=== PATIENT | male | born 1985 | race Caucasian/White ===

== ENCOUNTER 2022-07-04 07:43 | Day surgery (SDC) | payer OTHER ==
[~2022-07-04] VITALS: Ht 182.9 cm; Wt 84.4 kg
[2022-07-04 07:30] VITALS: BP 109/74
[2022-07-04 08:06] LABS: HEMATOCRIT 41.1 % (39.0-50.0); HEMOGLOBIN 13.6 g/dl (14.0-18.0); IMMATURE GRANULOCYTES 0.2 % (0.0-5.0); MEAN CELL VOLUME 81.9 fL CALC (80.0-100.0); MEAN CORPUSCULAR HGB 27.1 pG CALC (26.0-32.0); MEAN CORPUSCULAR HGB CONC 33.1 g/dL CAL (32.0-36.0); NEUT# 3.44 thou/uL (1.82-7.42); RED BLOOD COUNT 5.02 mill/uL (4.70-6.10); RED CELL DISTRI WIDTH 12.9 % (11.5-15.5)
[2022-07-04 08:29] LABS: ALBUMIN 4.6 g/dL (3.2-5.0); ALKALINE PHOSPHATASE 234 u/l (38-126); ANION GAP 13 (6-22 (CALC)); BILIRUBIN, TOTAL 1.8 mg/dL (0.0-1.4); BUN 13 mg/dL (9-20); BUN/CREATININE RATIO 15 (12-20 (CALC)); CARBON DIOXIDE 25 mmol/l (22-30); CHLORIDE 102 mmol/l (95-108); CREATININE 0.9 mg/dL (0.7-1.3); GFR FOR AFR.AMER. > 60 ML/MIN (>=60 (CALC)); GFR OTHER RACES > 60 ML/MIN (>=60 (CALC)); POTASSIUM 4.6 mmol/l (3.5-5.1); SGOT/AST 64 u/l (17-59); SODIUM 136 mmol/l (137-146); TOTAL PROTEIN 7.7 g/dL (6.3-8.2)
[2022-07-04 09:10] VITALS: BP 93/61
[2022-07-04 11:02] VITALS: BP 102/72
[2022-07-04] MEDS ORDERED: NALTREXONE50 MG PO (13:33)
[2022-07-04] MEDS ORDERED: CLONIDINE0.1 MG PO (13:33)
[2022-07-04] MEDS ORDERED: KLONOPIN2 MG PO (13:34)
[2022-07-04 19:30] VITALS: BP 118/80
[2022-07-04 22:32] VITALS: BP 124/86
[2022-07-05 03:29] VITALS: BP 108/72
[2022-07-05 06:26] LABS: ALKALINE PHOSPHATASE 295 u/l (38-126); BILIRUBIN, TOTAL 2.2 mg/dL (0.0-1.4); BUN 12 mg/dL (9-20); BUN/CREATININE RATIO 14 (12-20 (CALC)); CARBON DIOXIDE 20 mmol/l (22-30); CHLORIDE 108 mmol/l (95-108); CREATININE 0.9 mg/dL (0.7-1.3); GFR FOR AFR.AMER. > 60 ML/MIN (>=60 (CALC)); GFR OTHER RACES > 60 ML/MIN (>=60 (CALC)); MAGNESIUM 2.2 mg/dL (1.6-2.3); SGOT/AST 84 u/l (17-59); SODIUM 142 mmol/l (137-146); TOTAL PROTEIN 8.8 g/dL (6.3-8.2)
[2022-07-05 06:28] LABS: ANION GAP 20 (6-22 (CALC))
[2022-07-05 06:29] LABS: POTASSIUM 5.9 mmol/l (3.5-5.1)
[2022-07-05 07:33] VITALS: BP 121/76
[2022-07-05 08:03] LABS: HEMATOCRIT 39.8 % (39.0-50.0); HEMOGLOBIN 13.6 g/dl (14.0-18.0); IMMATURE GRANULOCYTES 0.2 % (0.0-5.0); MEAN CELL VOLUME 79.9 fL CALC (80.0-100.0); MEAN CORPUSCULAR HGB 27.3 pG CALC (26.0-32.0); MEAN CORPUSCULAR HGB CONC 34.2 g/dL CAL (32.0-36.0); NEUT# 5.02 thou/uL (1.82-7.42); RED BLOOD COUNT 4.98 mill/uL (4.70-6.10); RED CELL DISTRI WIDTH 12.8 % (11.5-15.5)
[2022-07-05 11:20] VITALS: BP 121/75
== END 2022-07-05 12:15 | disposition home or self-care (01) | DRG 897 ==
LOC: MS2 07:43 → ANR 07:43 → EDSEX 08:00 → ANR 08:00
PROVIDERS: ATTEND Anesthesiology
DX: F11.20 Opioid dependence, uncomplicated (principal)
CPT/HCPCS: J2354